=== PATIENT | female | born 1925 | race Caucasian/White ===

== ENCOUNTER 2016-09-05 08:48 | Inpatient (IN) | payer MEDICARE, BC, OTHER ==
[2016-09-05] MEDS: ACETAMINOPHEN 325 MG PO PRN ×3 (14:06→21:13)
[2016-09-05] MEDS: CHONDROITIN SULFATE PO SCH (21:14)
[2016-09-05] MEDS: GLUCOSAM PO SCH (21:14)
[2016-09-05] MEDS: ASCORBIC ACID/COPPER/VITAMIN SGL PO SCH (21:15)
[2016-09-05] MEDS: SIMVASTATIN 20 MG TAB PO SCH (21:16)
[2016-09-05] MEDS: LISINOPRIL 5 MG TAB PO SCH (21:16)
[2016-09-06] MEDS: ACETAMINOPHEN 325 MG PO PRN ×5 (01:55→19:34)
[2016-09-06] MEDS: ASCORBIC ACID/COPPER/VITAMIN SGL PO SCH ×2 (09:28→20:05)
[2016-09-06] MEDS: MULTIVITAMIN2 1 EA TAB PO SCH (09:28)
[2016-09-06] MEDS: DILTIAZEM ER 120 MG C24 PO SCH (09:28)
[2016-09-06] MEDS: GLUCOSAM PO SCH (20:04)
[2016-09-06] MEDS: CHONDROITIN SULFATE PO SCH (20:04)
[2016-09-06] MEDS: LISINOPRIL 5 MG TAB PO SCH (20:05)
[2016-09-06] MEDS: SIMVASTATIN 20 MG TAB PO SCH (20:05)
[2016-09-07] MEDS: ACETAMINOPHEN 325 MG PO PRN ×6 (00:32→22:47)
[2016-09-07] MEDS: ASCORBIC ACID/COPPER/VITAMIN SGL PO SCH ×2 (08:31→20:24)
[2016-09-07] MEDS: DILTIAZEM ER 120 MG C24 PO SCH (08:31)
[2016-09-07] MEDS: MULTIVITAMIN2 1 EA TAB PO SCH (08:31)
[2016-09-07] MEDS: GLUCOSAM PO SCH (20:24)
[2016-09-07] MEDS: CHONDROITIN SULFATE PO SCH (20:24)
[2016-09-07] MEDS: SIMVASTATIN 20 MG TAB PO SCH (20:25)
[2016-09-07] MEDS: LISINOPRIL 5 MG TAB PO SCH (20:25)
[2016-09-08] MEDS: ACETAMINOPHEN 325 MG PO PRN ×5 (02:46→20:11)
[2016-09-08] MEDS: DILTIAZEM ER 120 MG C24 PO SCH (08:45)
[2016-09-08] MEDS: MULTIVITAMIN2 1 EA TAB PO SCH (08:45)
[2016-09-08] MEDS: ASCORBIC ACID/COPPER/VITAMIN SGL PO SCH ×2 (08:46→20:12)
[2016-09-08] MEDS: GLUCOSAM PO SCH (20:12)
[2016-09-08] MEDS: CHONDROITIN SULFATE PO SCH (20:12)
[2016-09-08] MEDS: SIMVASTATIN 20 MG TAB PO SCH (20:13)
[2016-09-08] MEDS: LISINOPRIL 5 MG TAB PO SCH (20:13)
[2016-09-09] MEDS: ACETAMINOPHEN 325 MG PO PRN ×6 (00:59→22:40)
[2016-09-09] MEDS: MULTIVITAMIN2 1 EA TAB PO SCH (09:25)
[2016-09-09] MEDS: ASCORBIC ACID/COPPER/VITAMIN SGL PO SCH ×2 (09:26→20:26)
[2016-09-09] MEDS: DILTIAZEM ER 120 MG C24 PO SCH (09:26)
[2016-09-09] MEDS: CHONDROITIN SULFATE PO SCH (20:26)
[2016-09-09] MEDS: LISINOPRIL 5 MG TAB PO SCH (20:26)
[2016-09-09] MEDS: GLUCOSAM PO SCH (20:26)
[2016-09-09] MEDS: SIMVASTATIN 20 MG TAB PO SCH (20:27)
[2016-09-10] MEDS: ACETAMINOPHEN 325 MG PO PRN ×4 (06:30→21:32)
[2016-09-10] MEDS: ASCORBIC ACID/COPPER/VITAMIN SGL PO SCH ×2 (09:04→21:33)
[2016-09-10] MEDS: DILTIAZEM ER 120 MG C24 PO SCH (09:04)
[2016-09-10] MEDS: MULTIVITAMIN2 1 EA TAB PO SCH (09:04)
[2016-09-10] MEDS: CHONDROITIN SULFATE PO SCH (21:33)
[2016-09-10] MEDS: GLUCOSAM PO SCH (21:33)
[2016-09-10] MEDS: SIMVASTATIN 20 MG TAB PO SCH (21:34)
[2016-09-10] MEDS: LISINOPRIL 5 MG TAB PO SCH (21:34)
[2016-09-11] MEDS: DILTIAZEM ER 120 MG C24 PO SCH (08:39)
[2016-09-11] MEDS: MULTIVITAMIN2 1 EA TAB PO SCH (08:39)
[2016-09-11] MEDS: ASCORBIC ACID/COPPER/VITAMIN SGL PO SCH ×2 (08:39→20:46)
[2016-09-11] MEDS: ACETAMINOPHEN 325 MG PO PRN ×2 (12:41→18:48)
[2016-09-11] MEDS: LISINOPRIL 5 MG TAB PO SCH (20:46)
[2016-09-11] MEDS: SIMVASTATIN 20 MG TAB PO SCH (20:46)
[2016-09-11] MEDS: CHONDROITIN SULFATE PO SCH (20:47)
[2016-09-11] MEDS: GLUCOSAM PO SCH (20:47)
[2016-09-12] MEDS: ACETAMINOPHEN 325 MG PO PRN ×3 (07:19→20:28)
[2016-09-12] MEDS: MULTIVITAMIN2 1 EA TAB PO SCH (09:01)
[2016-09-12] MEDS: ASCORBIC ACID/COPPER/VITAMIN SGL PO SCH ×2 (09:01→20:28)
[2016-09-12] MEDS: DILTIAZEM ER 120 MG C24 PO SCH (09:01)
[2016-09-12] MEDS: GLUCOSAM PO SCH (20:27)
[2016-09-12] MEDS: CHONDROITIN SULFATE PO SCH (20:27)
[2016-09-12] MEDS: SIMVASTATIN 20 MG TAB PO SCH (20:28)
[2016-09-12] MEDS: LISINOPRIL 5 MG TAB PO SCH (20:28)
[2016-09-13] MEDS: ACETAMINOPHEN 325 MG PO PRN ×2 (02:57→08:18)
[2016-09-13 07:51] VITALS: BP 125/71; PULSE 73; RESP 18; TEMP 98.3; O2SAT 97
[2016-09-13] MEDS: ASCORBIC ACID/COPPER/VITAMIN SGL PO SCH (08:17)
[2016-09-13] MEDS: MULTIVITAMIN2 1 EA TAB PO SCH (08:17)
[2016-09-13] MEDS: DILTIAZEM ER 120 MG C24 PO SCH (08:18)
== END 2016-09-13 12:15 | disposition home or self-care (01) | DRG 950 ==
LOC: ACUTE CARE 12:06
PROVIDERS: ADMIT Family Medicine; ATTEND Family Medicine
PROC: F01ZBZZ Bed Mobility Assessment (ICD-10-PCS; principal; 2016-09-05)
PROC: F01ZDFZ Gait and/or Balance Assessment using Assistive, Adaptive, Supportive or Protective Equipment (ICD-10-PCS; 2016-09-05)
PROC: F01ZCZZ Transfer Assessment (ICD-10-PCS; 2016-09-05)
PROC: F02Z1ZZ Dressing Assessment (ICD-10-PCS; 2016-09-06)
PROC: F02Z0ZZ Bathing/Showering Assessment (ICD-10-PCS; 2016-09-06)
PROC: F02Z3ZZ Grooming/Personal Hygiene Assessment (ICD-10-PCS; 2016-09-06)
DX: Z48.89 Encounter for other specified surgical aftercare (principal); I10 Essential (primary) hypertension; Z98.1 Arthrodesis status